=== PATIENT | female | born 1990 | race Caucasian/White ===

== ENCOUNTER 2025-02-01 19:24 | Emergency (ER) | payer OTHER, BC ==
[~2025-02-01] VITALS: Ht 152.4 cm; Wt 63.5 kg
[~2025-02-01 19:24] MED LIST: Ondansetron4 MG PO
[2025-02-01] MEDS ORDERED: Lidocaine Hydrochloride 2% 10 ML AMP SC ONE (19:40)
[2025-02-01] MEDS ORDERED: Acetaminophen/Oxycodone 5 MG/325 MG TABLET PO ONE (19:40)
[2025-02-01] MEDS ORDERED: Ondansetron Hydrochloride 4 MG TAB PO ONE ×2 (19:40→21:30)
[2025-02-01] MEDS ORDERED: CEPHALEXIN500 M1 PO (22:10)
[2025-02-01] MEDS ORDERED: CEPHALEXIN 500 MG CAP PO ONE (22:10)
== END 2025-02-01 22:23 | disposition home or self-care (01) ==
LOC: ED 19:24
DX: S61.211A Laceration without foreign body of left index finger without damage to nail, initial encounter (principal); S61.213A Laceration without foreign body of left middle finger without damage to nail, initial encounter; S61.215A Laceration without foreign body of left ring finger without damage to nail, initial encounter; S61.217A Laceration without foreign body of left little finger without damage to nail, initial encounter; W26.8XXA Contact with other sharp object(s), not elsewhere classified, initial encounter; Y93.89 Activity, other specified; Y92.89 Other specified places as the place of occurrence of the external cause; Y99.0 Civilian activity done for income or pay

== ENCOUNTER → 2025-02-07 | Outpatient (CLI) | payer OTHER, BC ==
[~2025-02-07] MED LIST changes: +CEPHALEXIN500 M1 PO
== END | disposition home or self-care (01) ==
LOC: ORTHO 02:03
PROVIDERS: ATTEND Orthopaedic Surgery
DX: M79.642 Pain in left hand (principal)